=== PATIENT | female | born 1995 | race Caucasian/White ===

== ENCOUNTER 2024-07-07 17:17 | Emergency (ER) | payer OTHER, SELFPAY ==
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
[2024-07-07 17:45] VITALS: BP 141/98
== END 2024-07-07 22:28 | disposition home or self-care (01) ==
LOC: EMR 17:17
PROVIDERS: EMERGENCY PHYSICIAN Student in an Organized Health Care Education/Training Program; FAMILY PHYSICIAN Physician Assistant Medical
DX: S09.90XA Unspecified injury of head, initial encounter (principal); V89.2XXA Person injured in unspecified motor-vehicle accident, traffic, initial encounter
CPT/HCPCS: 99284; 70450; 72125

== ENCOUNTER 2024-09-05 16:02 | Outpatient (RCR) | payer OTHER, BC, SELFPAY | END 2024-09-05 23:59 | disposition home or self-care (01) | LOC: RPT 16:02 | PROVIDERS: ATTENDING PHYSICIAN Physician Assistant Medical | DX: R42 Dizziness and giddiness (principal); R51.9 Headache, unspecified; F07.81 Postconcussional syndrome; Z73.6 Limitation of activities due to disability | CPT/HCPCS: 97010; 97110; 97112; 97140; 97163; 97530 ==

== ENCOUNTER 2024-09-26 16:02 | Outpatient (RCR) | payer OTHER, BC, SELFPAY | END 2024-09-26 23:59 | disposition home or self-care (01) | LOC: RPT 16:02 | PROVIDERS: ATTENDING PHYSICIAN Physician Assistant Medical | DX: R42 Dizziness and giddiness (principal); R51.9 Headache, unspecified; F07.81 Postconcussional syndrome; Z73.6 Limitation of activities due to disability; V49.60XD Unspecified car occupant injured in collision with unspecified motor vehicles in traffic accident, subsequent encounter | CPT/HCPCS: 97010; 97110; 97112; 97140; 97530 ==

== ENCOUNTER 2024-10-13 16:01 | Outpatient (RCR) | payer OTHER, BC, SELFPAY | END 2024-10-14 07:34 | disposition home or self-care (01) | LOC: RPT 16:01 | PROVIDERS: ATTENDING PHYSICIAN Physician Assistant Medical | DX: F07.81 Postconcussional syndrome (principal); R42 Dizziness and giddiness; R51.9 Headache, unspecified; Z73.6 Limitation of activities due to disability; V49.60XD Unspecified car occupant injured in collision with unspecified motor vehicles in traffic accident, subsequent encounter | CPT/HCPCS: 97110; 97112; 97530 ==